=== PATIENT | male | born 1975 | race Two or more races ===

== ENCOUNTER 2023-08-04 23:01 | Emergency (ER) | payer MEDICAID ==
[~2023-08-04] VITALS: Ht 170.2 cm; Wt 150.0 kg
[~2023-08-04 23:01] MED LIST: ASPI-1450 PO; ATOR20TA PO; METF-1211 PO
[2023-08-04 23:11] VITALS: TEMP 98
[2023-08-05 00:29] LABS: BASOPHILS % (AUTO) 0.7 % (0.0-2.0); EOSINOPHILS % (AUTO) 2.5 % (1.0-6.0); HEMATOCRIT 45.3 % (41-53); HEMOGLOBIN 15.1 g/dL (13.5-17.5); LYMPHOCYTES # (AUTO) 1.2 K/uL (1.0-4.8); LYMPHOCYTES % (AUTO) 19.9 % (22.0-44.0); MEAN CORPUSCULAR HEMOGLOBIN 29.4 pg (26.0-34.0); MEAN CORPUSCULAR HGB CONC 33.3 G/dL (31.0-37.0); MEAN CORPUSCULAR VOLUME 88 fL (80-100); MONOCYTES # (AUTO) 0.5 K/uL (0.1-1.0); MONOCYTES % (AUTO) 8.3 % (2.0-9.0); NEUTROPHILS # (AUTO) 4.2 K/uL (1.8-7.7); NEUTROPHILS % (AUTO) 68.6 % (40.0-70.0); PLATELET COUNT (AUTO) 219 K/uL (150-450); RED BLOOD CELL COUNT(AUTO) 5.14 MIL/uL (4.50-5.90); RED CELL DISTRIBUTION WIDTH 13.2 % (11.5-14.5); WHITE BLOOD COUNT (AUTO) 6.2 K/uL (4.5-11.0)
[2023-08-05 00:34] LABS: ANION GAP 4 mmol/L (8-16); CALCIUM, TOTAL 8.7 mg/dL (8.8-10.5); CARBON DIOXIDE 31 mmol/L (22-29); CHLORIDE 98 mmol/L (98-107); CREATININE 0.98 mg/dL (0.60-1.30); GLOMERULAR FILTR. RATE CALC > 60 mL/min (>60); GLUCOSE,RANDOM 360 mg/dL (70-110); POTASSIUM 4.8 mmol/L (3.5-5.1); SODIUM SERUM 133 mmol/L (136-145); UREA NITROGEN, BLOOD 14 mg/dL (7-18)
[2023-08-05 00:40] LABS: ALANINE AMINOTRANSFERASE 34 U/L (12-78); ALBUMIN 3.3 g/dL (3.4-5.0); ALKALINE PHOSPHATASE 85 U/L (46-116); ASPARTATE AMINOTRANSFERASE 20 U/L (15-37); BILIRUBIN,TOTAL 0.9 mg/dL (0.1-1.0); LIPASE 96 U/L (16-77); TOTAL PROTEIN, SERUM 6.7 g/dL (6.4-8.2)
[2023-08-05 00:45] LABS: ACETONE,BLOOD NEGATIVE (NEGATIVE)
[2023-08-05 00:54] LABS: TROPONIN I-HIGH SENSITIVITY 6 ng/L (<76)
[2023-08-05 00:55] LABS: LACTIC ACID 1.5 mmol/L (0.4-2.0)
[2023-08-05] MEDS: SODIUM CHLORIDE 0.9% 1,000 ML IV ONE (01:58)
[2023-08-05] MEDS: INSULIN REGULAR, HUMAN 100 UNITS/ML IVP ONE (02:01)
[2023-08-05 02:06] VITALS: BP 142/90; PULSE 94; RESP 18
[2023-08-05 02:55] LABS: GLUCOMETER DEV NAME(LOC) ER.6; GLUCOSE,POINT OF CARE 216 MG/DL (70-110)
[2023-08-05] MEDS ORDERED: GLIP5TAB16 PO (02:55)
[2023-08-05] MEDS ORDERED: METF-1211 PO (02:55)
== END 2023-08-05 03:31 | disposition home or self-care (01) ==
LOC: EMS 23:01
DX: R42 Dizziness and giddiness (principal); E11.65 Type 2 diabetes mellitus with hyperglycemia; Z86.73 Personal history of transient ischemic attack (TIA), and cerebral infarction without residual deficits; Z59.819 Housing instability, housed unspecified
CPT/HCPCS: 99285; 80053; 82009; 82962; 83605; 83690; 84484; 85025; 36415; 96374; 71045; 96361; 93005; J1815